=== PATIENT | female | born 1970 | race Caucasian/White ===

== ENCOUNTER 2020-06-23 12:36 | Emergency (ER) | payer OTHER ==
[2020-06-23] MEDS ORDERED: HYDROCODONE/ACETAMINOPHEN 5-325 MG TABLET PO ONE (13:43)
[2020-06-23] MEDS ORDERED: DIPH/PERTUSS(ACELL)/TETANUS VAC/PF 0.5 ML SYR (>=10YO) IM ONE (13:43)
--- NOTE | 2020-06-23 13:47 | ER Document Report ---
ED Medical Screen (RME) - General Chief Complaint: Thumb Injury Stated Complaint: HAND INJURY Time Seen by Provider: 06/23/20 13:37 Notes: Patient states she was walking slipped on a wet surface and fell while holding her hand. Patient states the hand struck her right thumb. Patient with laceration, swelling and bruising to right thumb. Patient also complains of left knee pain. I have greeted and performed a rapid initial assessment of this patient. A comprehensive ED assessment and evaluation of the patient, analysis of test results and completion of the medical decision making process will be conducted by additional ED providers. - Related Data Allergies/Adverse Reactions: No Known Allergies Allergy (Unverified 06/23/20 13:45) Home Medications: arthritis Past Medical History - Social History Chew tobacco use (# tins/day): No Drug Abuse: None Physical Exam - Vital signs Vitals: Temp Pulse Resp BP Pulse Ox 97.5 F 84 18 188/109 H 97 06/23/20 12:57 06/23/20 12:57 06/23/20 12:57 06/23/20 12:57 06/23/20 12:57 - General General appearance: Appears well, Alert Notes: Laceration to radial aspect of the right thumb Course - Vital Signs Vital signs: Temp Pulse Resp BP Pulse Ox 97.5 F 84 18 188/109 H 97 06/23/20 12:57 06/23/20 12:57 06/23/20 12:57 06/23/20 12:57 06/23/20 12:57
--- NOTE | 2020-06-23 14:35 | RADIOLOGY REPORT (SQ) ---
EXAM DESCRIPTION: FINGER RIGHT IMAGES COMPLETED DATE/TIME: 06/23/2020 2:10 pm REASON FOR STUDY: r thumb, fall COMPARISON: None. NUMBER OF VIEWS: Three views. TECHNIQUE: AP, lateral, and oblique images acquired of the right thumb. LIMITATIONS: None. FINDINGS: MINERALIZATION: Normal. BONES: No acute fracture or dislocation. No worrisome bone lesions. SOFT TISSUES: No soft tissue swelling. No foreign body. OTHER: No other significant finding. IMPRESSION: NO RADIOGRAPHIC EVIDENCE OF ACUTE INJURY. COMMENT: SITE OF TRAUMA/COMPLAINT MARKED/STAMP COMPLETED: NO. TECHNICAL DOCUMENTATION: JOB ID: [id number] 2010 [employer]- All Rights Reserved Reading location - IP/workstation name: [email or web address]
--- NOTE | 2020-06-23 14:36 | RADIOLOGY REPORT (SQ) ---
EXAM DESCRIPTION: KNEE LEFT 4 VIEW IMAGES COMPLETED DATE/TIME: 06/23/2020 2:10 pm REASON FOR STUDY: r thumb, fall COMPARISON: None. NUMBER OF VIEWS: Four views. TECHNIQUE: AP, lateral, and both oblique radiographic images acquired of the left knee. LIMITATIONS: None. FINDINGS: MINERALIZATION: Normal. BONES: No acute fracture or dislocation. No worrisome bone lesions. JOINT: No effusion. SOFT TISSUES: No soft tissue swelling. No radio-opaque foreign body. OTHER: No other significant finding. IMPRESSION: NEGATIVE STUDY OF THE LEFT KNEE. NO RADIOGRAPHIC EVIDENCE OF ACUTE INJURY. TECHNICAL DOCUMENTATION: JOB ID: [id number] 2010 [employer]- All Rights Reserved Reading location - IP/workstation name: [email or web address]
--- NOTE | 2020-06-23 15:21 | ER Document Report ---
Entered by RYAN POON SCRIBE 06/23/20 1419 Acting as scribe for:PARESH PORTER MD ED Hand/Wrist Injury - General Chief Complaint: Thumb Injury Stated Complaint: HAND INJURY Time Seen by Provider: 06/23/20 13:37 Primary Care Provider: АНДРЕЙ HOBSON [employer] [Primary Care Provider] - Follow up as needed Mode of Arrival: Ambulatory Information source: Patient Notes: This 49 year old female patient presents to the ED today for evaluation of right thumb pain after slipping and falling at work. Patient states that a ham landed directly on her right hand. There is a laceration to her right thumb. Patient states that she does not like needles and would prefer not to get sutures. She is left hand dominant. - Related Data Allergies/Adverse Reactions: No Known Allergies Allergy (Unverified 06/23/20 13:45) Home Medications: arthritis Past Medical History - General Information source: Patient, [facility] Records - Social History Smoking Status: Never Smoker Cigarette use (# per day): No Chew tobacco use (# tins/day): No Smoking Education Provided: No Frequency of alcohol use: None Drug Abuse: None Family History: Reviewed & Not Pertinent - Past Medical History Cardiac Medical History: Reports: Hx Hypertension Past Surgical History: Reports: Hx Orthopedic Surgery - Right foot, 2011 Review of Systems - Review of Systems Constitutional: No symptoms reported EENT: No symptoms reported Cardiovascular: No symptoms reported Respiratory: No symptoms reported Gastrointestinal: No symptoms reported Genitourinary: No symptoms reported Female Genitourinary: Last menstrual period - current Musculoskeletal: See HPI Skin: See HPI Hematologic/Lymphatic: No symptoms reported Neurological/Psychological: No symptoms reported -: Yes All other systems reviewed and negative Physical Exam - Vital signs Vitals: Temp Pulse Resp BP Pulse Ox 97.5 F 84 18 188/109 H 97 06/23/20 12:57 06/23/20 12:57 06/23/20 12:57 06/23/20 12:57 06/23/20 12:57 - General General appearance: Alert In distress: None - HEENT Head: Normocephalic, Atraumatic Eyes: Normal Extraocular movements intact: Yes Pupils: PERRL Neck: Normal, Supple - Respiratory Respiratory status: No respiratory distress Chest status: Nontender Breath sounds: Normal Chest palpation: Normal - Cardiovascular Rhythm: Regular Heart sounds: Normal auscultation Murmur: No - Abdominal Inspection: Normal Distension: No distension Bowel sounds: Normal Tenderness: Nontender Organomegaly: No organomegaly - Back Back: Normal, Nontender - Extremities General lower extremity: Normal inspection. No: Edema Hand: Laceration - There is a 1.5 cm skin tear along the radial edge of the right thumb at the distal phalanx. No subungual bleeding., Other - The dorsal surface of the distal phalanx on the right thumb is ecchymotic and swollen. The IP joint is tender to palpation. Distal pulse, sensation, and motor intact. - Neurological Neuro grossly intact: Yes Orientation: AAOx4 [place] Coma Scale Eye Opening: Spontaneous [place] Coma Scale Verbal: Oriented [place] Coma Scale Motor: Obeys Commands [place] Coma Scale Total: 15 - Psychological Associated symptoms: Normal affect, Normal mood - Skin Skin Temperature: Warm Skin Moisture: Dry Skin Color: Normal Course - Re-evaluation Re-evalutation: 06/23/20 16:24 The patient's blood pressure was very high today. She tells me that on her last doctor's visit about 2 weeks ago it was elevated and they told her to keep a check on it with the blood pressure machine to have it work. She has been doing this and has been running a little high but not like today. She will continue to monitor her pressure and follow-up with her primary care provider to manage the elevated blood pressure if it persists. - Vital Signs Vital signs: Temp Pulse Resp BP Pulse Ox 97.5 F 72 16 184/107 H 100 06/23/20 12:57 06/23/20 16:19 06/23/20 16:19 06/23/20 16:19 06/23/20 16:19 - Laboratory Results Critical Laboratory Results Reviewed: No Critical Results - Radiology Results Critical Radiology Results Reviewed: No Critical Results Discharge - Discharge Clinical Impression: Elevated blood pressure reading Crushing injury of right thumb Qualifiers: Encounter type: initial encounter Qualified Code(s): S67.01XA - Crushing injury of right thumb, initial encounter Laceration of right thumb Qualifiers: Encounter type: initial encounter Damage to nail status: without damage Foreign body presence: without foreign body Qualified Code(s): S61.011A - Laceration without foreign body of right thumb without damage to nail, initial encounter Condition: Stable Disposition: HOME, SELF-CARE Additional Instructions: Crush Injury Your injury caused a crushing of the tissues. Crush injuries can include skin damage, bleeding within the tissues (hematoma), and muscle injury. Sometimes the crushing damages a nerve or artery. This usually heals without surgery. If there's a break in the skin with the crushing, it's more prone to infection and takes longer to heal than other cuts. Crush injuries may take a long time to heal. In severe cases, there may be actual of tissues -- for example, the skin may turn black and become a "scab." Crush injuries vary in the amount of pain they cause, and in the length of time required for healing. Typically, the area will become bruised, and will remain painful to touch for two or three weeks. However, most patients are back to working and playing within a few days. After the initial period of rest, elevation, and cold-packs, your symptoms (together with the doctor's recommendations) will determine how rapidly you can get back to full activity. Usually this means "do what feels okay, but don't do things that hurt." If re-examination was recommended, it's important to follow up as instructed. Call the doctor or return any time if pain increases, if swelling becomes severe, if you develop numbness or weakness in an injured extremity, or if any other alarming symptoms occur. Hand Laceration A laceration on the hand can present special problems. It may be difficult to keep the wound dry. Motion of the fingers can disturb the healing edges. Your work may involve exposure to damaging chemicals or water. Keep the wound clean and dry. If you can't keep the cut dry, undisturbed, and free of chemical exposure, please discuss this with the doctor. If any water or chemical gets onto the dressing, remove it, blot the wound dry, then apply a fresh bandage. Dressings should be changed every day. If you feel the stitches pulling as you move the hand, a splint or other form of protection is needed. If any signs of infection occur (swelling, redness, increasing tenderness, red streaks, tender lumps in the armpit, or fever), see the doctor immediately. High Blood Pressure When your blood pressure was taken today it was elevated. Pre-hypertension/Hypertension: The patient has been informed that they may have pre-hypertension or Hypertension based on a blood pressure reading in the emergency department. I recommend that the patient call the primary care provider listed on their discharge instructions or a physician of their choice this week to arrange follow up for further evaluation of possible pre- hypertension or Hypertension. Sometimes, stress or illness causes a temporary elevation of your blood pressure. We suggest that you get your blood pressure measured three more times during the next few days to see if this is more than a temporary abnormality. If your blood pressure is greater than 150/90 on each occasion, you must have treatment. Some simple things you can do to help are: If you have blood pressure medicine but aren't using it regularly, start taking it again. Get some aerobic exercise for at least 20 minutes on a daily basis. (See your doctor before beginning a new exercise program.) Eat a low-fat diet. Lose excess weight. Avoid salty foods and avoid adding salt to any of the foods you eat. Avoid diet pills, decongestants, "energizing" herbs, and other medicines that elevate blood pressure. If left untreated, hypertension greatly enhances your risk for developing heart disease and strokes. Please don't ignore this problem. Keep the wound dressing clean and dry. Elevate your hand is much as possible. Take ibuprofen or Aleve for pain. Take the Percocet as prescribed for pain not controlled with ibuprofen or Aleve. Remove the dressing in 2 to 3 days and then keep the thumb bandaged with bacitracin ointment and a Band-Aid. Follow-up with your primary care provider next week to recheck your blood pressure to help determine if you will need blood pressure medication management. RETURN TO THE EMERGENCY ROOM IF ANY NEW OR WORSENING SYMPTOMS. Prescriptions: Oxycodone HCl/Acetaminophen [Percocet 5-325 mg Tablet] 1 tab PO ASDIR PRN #12 tablet PRN Reason: Forms: Return to Work Referrals: АНДРЕЙ HOBSON, [employer] [Primary Care Provider] - Follow up as needed I personally performed the services described in the documentation, reviewed and edited the documentation which was dictated to the scribe in my presence, and it accurately records my words and actions.
[2020-06-23 16:19] VITALS: BP 184/107
== END 2020-06-23 16:38 | disposition home or self-care (01) ==
LOC: ER 12:36
DX: R03.0 Elevated blood-pressure reading, without diagnosis of hypertension (principal); S67.01XA Crushing injury of right thumb, initial encounter; S61.011A Laceration without foreign body of right thumb without damage to nail, initial encounter; M25.562 Pain in left knee; W01.0XXA Fall on same level from slipping, tripping and stumbling without subsequent striking against object, initial encounter; Y99.0 Civilian activity done for income or pay; Z23 Encounter for immunization
CPT/HCPCS: 90471; 90715; 99284